=== PATIENT | male | born 1980 | race Caucasian/White ===

== ENCOUNTER → 2016-07-07 | Outpatient (CLI) | payer OTHER ==
--- NOTE | 2016-07-07 15:10 | CPEEG ---
[f rep st] ELECTROENCEPHALOGRAM DATE OF STUDY: 07/07/2016 DATE OF INTERPRETATION: 07/07/2016 INTERPRETATION: This 4-hour video EEG recording is abnormal due to the presence of potentially epileptogenic abnormalities over the left frontal head region. These findings would be consistent with a focal seizure disorder. During the video EEG monitoring session, the patient did not have any clinical events. REPORT: This 4-hour video EEG contains 9-10 Hz alpha over the posterior head regions. The primary feature of this recording was the presence of left frontal spikes and sharp waves (maximal over electrode F3). These discharges were accompanied by intermittent slowing over the left frontal head region. Often, these discharges occurred in trains of spikes or sharp waves occurring at 3-4 Hz, lasting 3-7 seconds in duration without any significant evolution in frequency or distribution. There was no additional activation with hyperventilation or photic stimulation. The patient fell asleep during the study. During drowsiness and sleep, there was continued activation of left lateral frontal spikes and sharp waves that occurred in trains. During the video EEG monitoring session, the patient did not have any clinical events. /[id number]/MODL MTDD
== END ==
LOC: FCPNEURO 09:11
PROVIDERS: ATTEND Psychiatry & Neurology Neurology
DX: R94.01 Abnormal electroencephalogram [EEG] (principal); G40.909 Epilepsy, unspecified, not intractable, without status epilepticus; F31.9 Bipolar disorder, unspecified

== ENCOUNTER 2017-08-26 15:26 | Emergency (ER) | payer MEDICAID, OTHER ==
[2017-08-26 15:59] VITALS: BP 97/71; PULSE 78; RESP 18; TEMP 98.1; O2SAT 98
--- NOTE | 2017-08-26 16:56 | EDPHY ---
H & P Stated Complaint: pt states has seen worm crawling in his l inner cheek Time Seen by Provider: 08/26/17 16:40 HPI/ROS: CHIEF COMPLAINT: Abnormal sensation in his left cheek HISTORY OF PRESENT ILLNESS: The patient presents to the ED with an abnormal sensation left cheek. The patient reportedly has a history of seizures and is on Keppra. The patient is concerned that he may have a parasite. The patient denies any prior history of significant medical problems. The patient denies any recent travel outside [facility]. REVIEW OF SYSTEMS: A comprehensive 10 point review of systems is otherwise negative aside from elements mentioned in the history of present illness. Source: Patient - Personal History Current Tetanus/Diphtheria Vaccine: Yes - Medical/Surgical History Hx Asthma: No Hx Chronic Respiratory Disease: No Hx Diabetes: No Hx Cardiac Disease: No Hx Renal Disease: No Hx Cirrhosis: No Hx Alcoholism: No Hx HIV/AIDS: No Hx Splenectomy or Spleen Trauma: No Other PMH: epilepsy - Social History Smoking Status: Current every day smoker - Physical Exam Exam: General Appearance: Alert, no distress Eyes: Pupils equal and round no pallor or injection ENT, Mouth: Mucous membranes moist patient does have an area of abrasion and ecchymoses noted to his left intraoral mucosa. I see no obvious worm or parasite Respiratory: There are no retractions, lungs are clear to auscultation Cardiovascular: Regular rate and rhythm Gastrointestinal: Abdomen is soft and nontender, no masses, bowel sounds normal Neurological: Grossly normal motor exam Skin: Warm and dry, no rashes Musculoskeletal: Neck is supple nontender Extremities: symmetrical, full range of motion Constitutional: Initial Vital Signs Temperature (C) 36.7 C 08/26/17 15:56 Heart Rate 78 08/26/17 15:56 Respiratory Rate 18 08/26/17 15:56 Blood Pressure 97/71 L 08/26/17 15:56 O2 Sat (%) 98 08/26/17 15:56 O2 Delivery Mode Room Air Allergies/Adverse Reactions: No Known Allergies Allergy (Verified 08/26/17 15:56) Home Medications: Medication Instructions Recorded Keppra 03/18/09 Depakote 08/26/17 Medical Decision Making ED Course/Re-evaluation: The patient will be referred to oral surgery for evaluation of his intraoral lesion. Departure - Departure Disposition: Home, Routine, Self-Care Clinical Impression: Oral lesion Condition: Good Additional Instructions: 1. Please follow up with Dr. Rich Monique our oral surgeon for further evaluation of your intraoral lesion. Referrals: Rich Monique DDS [Doctor of Dental Surgery] - As per Instructions
== END 2017-08-26 17:08 | disposition home or self-care (01) ==
DX: K13.70 Unspecified lesions of oral mucosa (principal); F17.200 Nicotine dependence, unspecified, uncomplicated